=== PATIENT | male | born 1965 ===

== ENCOUNTER 2019-01-04 15:56 | Outpatient (REF) | payer OTHER, SELFPAY ==
[2019-01-04 21:13] LABS: Abs Immature Grans 0.02 k/cumm (0.0-0.09); Absolute Basophil Count 0.02 k/cumm (0.0-0.2); Absolute Eosinophil Count 0.12 k/cumm (0.0-0.7); Absolute Lymphocyte Count 2.25 k/cumm (1.2-3.4); Absolute Neutrophil Count 5.29 k/cumm (1.2-6.7); Basophils % 0.2; Eosinophils % 1.4; HCT 43.1 % (40.0-50.0); HGB 14.4 g/dL (13.5-17.5); Immature Grans % 0.2; Lymphocytes % 26.5; Mean Corp. HGB Concentration 33.4 g/dL (32.0-36.0); Mean Corpuscular Hemoglobin 30.3 pg (27.0-33.0); Mean Corpuscular Volume 90.5 fL (80-95); Mean Platelet Volume 11.9 fL (8.0-11.0); Monocytes % 9.4; Neutrophils % 62.3; Platelet Count 257 x1000/uL (130-400); RBC 4.76 m/cumm (4.50-6.00); RBC Distribution Width 12.6 % (11.8-14.1)
[2019-01-04 21:36] LABS: ALT 42 U/L (12-78); AST 22 U/L (15-37); Albumin 3.9 g/dL (3.4-5.0); Alkaline Phosphatase 54 U/L (46-116); Anion Gap 11.5 mmol/L (3-11); BUN 17 mg/dL (7-18); Bilirubin, Total 0.4 mg/dL (0.2-1.0); CO2 26.5 mmol/L (21.0-32.0); CREATININE 0.97 mg/dL (0.70-1.30); Calculated LDL 81 mg/dL; Chloride 103 mmol/L (98-107); Cholesterol 181 mg/dL (50-200); Glucose 85 mg/dL (70-100); HDL Cholesterol 44 mg/dL (40-60); Potassium 4.1 mmol/L (3.5-5.1); Sodium 141 mmol/L (136-145); TSH (W/Ref FT4) 2.15 uIU/mL (0.36-3.74); Total Protein 7.5 g/dL (6.4-8.2); Triglyceride 283 mg/dL (30-150)
== END 2019-01-04 16:16 ==
LOC: NCHCN 15:56
PROVIDERS: PCP Family Medicine; Visit Provider Family Medicine
DX: I10 Essential (primary) hypertension (principal); K21.9 Gastro-esophageal reflux disease without esophagitis; H04.129 Dry eye syndrome of unspecified lacrimal gland; Z68.42 Body mass index [BMI] 45.0-49.9, adult; Z82.49 Family history of ischemic heart disease and other diseases of the circulatory system
CPT/HCPCS: 80053; 80061; 83721; 84443; 85025

== ENCOUNTER 2023-04-16 12:51 | Outpatient (REF) | payer OTHER, SELFPAY ==
[2023-04-16 22:18] LABS: COMMENT (LAB VIEW ONLY) 97.32 mg/dL; Microalb ug/mg Crea 8.4 ug/mg Cr
== END 2023-04-16 12:52 | disposition home or self-care (01) ==
LOC: NCHCN 12:51
PROVIDERS: PCP Family Medicine; Visit Provider Internal Medicine
DX: E11.9 Type 2 diabetes mellitus without complications (principal)
CPT/HCPCS: 82043; 82570

== ENCOUNTER 2023-08-29 19:55 | Outpatient (REF) | payer OTHER, SELFPAY ==
[2023-08-29 21:41] LABS: Hemoglobin A1C 6.8 % (<5.7)
== END 2023-08-29 19:56 | disposition home or self-care (01) ==
LOC: NCHCN 19:55
PROVIDERS: PCP Family Medicine; Visit Provider Internal Medicine
DX: E11.9 Type 2 diabetes mellitus without complications (principal)
CPT/HCPCS: 83036

== ENCOUNTER 2024-03-31 22:14 | Outpatient (REF) | payer OTHER, SELFPAY ==
[2024-03-31 21:50] LABS: COMMENT (LAB VIEW ONLY) 89.47 mg/dL; Microalb ug/mg Crea 7.3 ug/mg Cr
== END 2024-03-31 22:15 | disposition home or self-care (01) ==
LOC: NCHCN 22:14
PROVIDERS: PCP Family Medicine; Visit Provider Internal Medicine
DX: E11.9 Type 2 diabetes mellitus without complications (principal)
CPT/HCPCS: 82043; 82570